=== PATIENT | male | born 1985 | race Caucasian/White ===

== ENCOUNTER 2021-05-25 13:17 | Inpatient (IN) | payer OTHER, SELFPAY ==
[2021-05-25] VITALS (7 sets, daily range): BP systolic 116–162; BP diastolic 61–110; PULSE 92–121; RESP 14–20; TEMP 36.7–37.2; O2SAT 96–100; BMI 25.6
--- NOTE | ~2021-05-25 | XR_ITS ---
EXAMINATION: XR humerus LT DATE: 05/25/2021 13:43 INDICATION: Left humerus injury. TECHNIQUE: A single view of left humerus was obtained. COMPARISON: Left elbow radiographs 05/25/2021 FINDINGS: There is a comminuted fracture of left humeral diaphysis. The main distal fracture fragment demonstrates 13 degrees medial angulation, 4 mm lateral displacement, and 8 mm anterior displacement . There is normal alignment at the shoulder and elbow. IMPRESSION: 1. Comminuted fracture of left humeral diaphysis. Reviewed, dictated and finalized at location A. EEPER
--- NOTE | ~2021-05-25 | XR_ITS ---
EXAMINATION: XR chest 1V portable INDICATION: Left humerus fracture TECHNIQUE: Portable AP chest at 1555 hours COMPARISON: None available FINDINGS: There are minimal opacities of the lungs, left greater than right. No pleural effusion or p neumothorax is identified. The cardiomediastinal silhouette is normal. IMPRESSION: 1. Minimal opacities of the lungs, likely atelectasis. Reviewed, dictated and finalized at location F. TING CRANE OPERATOR
--- NOTE | ~2021-05-25 | MR_ITS ---
EXAMINATION: MR humerus LT wo/w con DATE: 05/26/2021 17:15 INDICATION: Left humeral fracture. TECHNIQUE: Magnetic resonance imaging (MRI) of the left humerus was performed without and with 18 mL Multihance intravenous contrast. Sequences included axial, sagittal and coronal T1-weighted FSE and f luid sensitive FSE STIR, axial T1-weighted FS FSE and postcontrast axial and coronal T1-weighted FS F SE COMPARISON: Radiograph dated 05/25/2021 FINDINGS: Comminuted diaphyseal fracture of the left humerus with mild displacement and approximately 15 degree s posterior medial angulation at the oblique distal fracture plane and with nondisplaced more proxima l oblique fracture plane. Central marrow edema extending proximally and distally in the left humerus. No evident cortical erosion or loss of T1 fat signal to suggest underlying pathologic marrow replaci ng process. There is some additional soft tissue edema and mild non masslike enhancement in the surro unding musculature. Neurovascular structures are unremarkable and do not closely approaches the site of the fracture. No abnormally enhancing masses or bone lesions. The left shoulder and elbow joints a re unremarkable with no effusion or malalignment. IMPRESSION: 1. Left humeral diaphyseal fracture with no findings to suggest pathologic fracture. Reviewed, dictated and finalized at location A. TER TACKER IMPRESSION: 1. Left humeral diaphyseal fracture with no findings to suggest pathologic frac ture.
--- NOTE | ~2021-05-25 | XR_ITS ---
EXAMINATION: XR humerus LT DATE: 05/29/2021 16:57 INDICATION: Left humeral fracture with application of coaptation splint. TECHNIQUE: AP internally rotated view of the left humerus were obtained on 3 images. COMPARISON: Radiograph dated 05/25/2021 FINDINGS: Fiberglas splinting of a mildly comminuted diaphyseal fracture of the left humerus. There is increase d now 8 degrees anteromedial angulation. Left acromioclavicular and glenohumeral joints appear normal . Left elbow joint is poorly profiled. IMPRESSION: 1. 8 degree of residual anteromedial displacement of a mildly comminuted left humeral diaphyseal frac ture post reduction and splinting. Reviewed, dictated and finalized at location A. T [employer] IMPRESSION: 1. 8 degree of residual anteromedial displacement of a mildly comminuted left h umeral diaphyseal fracture post reduction and splinting.
--- NOTE | ~2021-05-25 | XR_ITS ---
EXAMINATION: XR elbow LT 2V DATE: 05/25/2021 13:43 INDICATION: Left elbow injury. TECHNIQUE: 2 views of left elbow were obtained. COMPARISON: None. FINDINGS: There is a comminuted fracture of left humeral diaphysis. There is normal bone alignment at the elbow. Joint spaces are normal. IMPRESSION: 1. Comminuted fracture of left humeral diaphysis. Reviewed, dictated and finalized at location A. 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
[2021-05-25] MEDS: KETOROLAC 30 MG/ML VIAL (*BKC) IV PUSH (13:34)
[2021-05-25] MEDS: LORazepam INJ (*CRX) 2 MG/ML VIAL 1 MG IV PUSH ×2 (13:40→22:35)
[2021-05-25] MEDS: HYDROmorphone HCL INJ (*CRX) 1 MG/ML SYR IV PUSH ×5 (13:59→23:38)
[2021-05-25] MEDS: diazePAM INJ (*CRX) 10 MG/2 ML SYRINGE 2.5 MG IV PUSH (14:00)
--- NOTE | 2021-05-25 15:07 | ED.UPPEXIN ---
HPI - Extremity Injury (Upper) General Chief Complaint: Extremity Injury, Upper Stated Complaint: arm injury Time Seen by Provider: 05/25/21 13:55 Source: patient Mode of arrival: ambulatory Limitations: no limitations History of Present Illness HPI narrative: Patient is a 35-year-old male complaining of left arm pain, the whole crowd at the baseball game heard it snap , 10 out of 10, dull, started prior to arrival after throwing a pitch, heard something snap and almost passed out due to the severity of the pain. Patient denies any other pain or injury. Related Data Home Medications Medication Instructions Recorded Confirmed bupropion HCl 150 mg PO DAILY 05/25/21 buspirone 15 mg PO TID PRN 05/25/21 naltrexone 50 mg PO BID 05/25/21 Allergies Allergy/AdvReac Type Severity Reaction Status Date / Time No Known Allergies Allergy Verified 05/25/21 13:24 Review of Systems Review of Systems: All systems reviewed & are unremarkable except as noted in HPI and below Constitutional: Constitutional: Denies body ache(s), Denies chills, Denies excessive sweating, Denies fatigue, Denies fever(s), Denies headache(s), Denies lethargy, Denies malaise, Denies weakness and Denies weight loss Eyes: Eyes: Denies blurry vision, Denies change in vision and Denies loss of vision ENT: Denies dizziness, Denies ear discharge, Denies headache(s), Denies lip swelling, Denies epistaxis, Denies nasal congestion, Denies neck pain, Denies throat swelling and Denies tongue swelling Cardiovascular: Cardiovascular: Denies chest pain, Denies chest pain at rest, Denies chest pain with activity, Denies diaphoresis, Denies rapid heart rate, Denies edema, Denies irregular heart rhythm, Denies lightheadedness, Denies palpitations, Denies dyspnea and Denies dyspnea on exertion Respiratory: Respiratory: Denies chest congestion, Denies cough, Denies hemoptysis, Denies dyspnea and Denies dyspnea on exertion Gastrointestinal: Gastrointestinal: Denies abdominal pain, Denies melena, Denies hematochezia, Denies diarrhea, Denies nausea, Denies vomiting and Denies hematemesis Musculoskeletal: Musculoskeletal: Denies abnormal gait, Denies neck pain and Denies numbness Neurologic: Denies Abnormal speech present, Denies abnormal gait, Denies confusion, Denies dizziness, Denies headache(s), Denies focal weakness, Denies loss of vision, Denies numbness, Denies Other visual disturbances, Denies Sensory deficit (Neuro) and Denies weakness Psychiatric: Psychiatric: Denies confusion, Denies depression, Denies auditory hallucinations, Denies homicidal ideation and Denies suicidal ideation Endocrine: Endocrine: Denies cold intolerance, Denies excessive sweating, Denies fatigue, Denies heat intolerance and Denies palpitations Hematologic/Lymphatic: Hematologic/Lymphatic: Denies easy bleeding and Denies easy bruising Allergic/Immunologic: Allergic/Immunologic: Denies lip swelling, Denies throat swelling and Denies tongue swelling PMFSH Comments Past medical history: None History: Unknown Social history: Non-smoker, no EtOH or drug use Exam Const: General: cooperative, healthy appearing, comfortable, no acute distress, well developed, alert and awake; No confusion Orientation/consciousness: oriented to person, oriented to place, oriented to time, patient oriented x3 and No confusion Limitations: no limitations HENMT: Head: normal to inspection, normocephalic and atraumatic Ears: hearing grossly normal bilaterally, TM normal on the right and TM normal on the left General nose exam: Normal external nose present, Normal nares present and No nasal discharge present Face and sinus: normal facial exam Mouth: Yes Normal oral and palatal mucosa present, Yes lip normal, Yes tongue normal and Yes oropharynx normal Throat: posterior oropharynx normal, tonsils normal and uvula midline Eyes: General: appearance normal, both eyes and all related structures Pupils: Equal, round and reacti
--- NOTE | 2021-05-25 15:47 | ECG_ITS ---
Measurements Intervals Drake Rate: 108 P: 50 VT: 172 QRS: 18 QRSD: 95 T: 30 QT: 326 QTc: 438 Interpretive Statements SINUS TACHYCARDIA INCOMPLETE RIGHT BUNDLE BRANCH BLOCK CONSIDER INFERIOR INFARCT, AGE INDETERMINATE BORDERLINE T WAVE ABNORMALITY- ANTERIOR LEADS ABNORMAL ECG Electronically Signed On 05-25-2021 20:27:44 HELP DESK SUPPORT by Prem Saleh D.O.
[2021-05-25] MEDS: LACTATED RINGERS 1,000 ML 125 ML IV CONT ×2 (15:55→22:35)
[2021-05-25 16:06] LABS: Basophils Absolute Auto 0.1 K/mm3 (0.0-0.1); Basophils Percent Auto 0.5 % (0.2-1.2); Eosinophils Percent Auto 0.2 % (0-4.4); Hematocrit 35.8 % (42.0-52.0); Hemoglobin 12.3 g/dL (14.0-18.0); Immature Granulocyte Absolute 0.09 K/mm3 (0.00-0.031); Immature Granulocyte Percent A 0.7 % (0-0.5); Immature Platelet Fraction Pct 1.4 % (0.9-11.2); Lymphocytes Percent Auto 9.7 % (18.3-44.2); Mean Corpuscular HGB Conc 34.4 g/dl (32-36); Mean Corpuscular Hemoglobin 31.7 pg (26-34); Mean Corpuscular Volume 92.3 fl (80-100); Mean Platelet Volume 8.7 fl (7.4-10.4); Monocytes Absolute Auto 0.6 K/mm3 (0.1-0.6); Monocytes Percent Auto 4.5 % (2.6-8.5); Neutrophils Absolute Auto 10.5 K/mm3 (1.3-6.7); Neutrophils Percent Auto 84.4 % (45.5-73.1); Platelet Count Result 241 k/mm3 (150-375); Red Blood Count 3.88 M/mm3 (4.6-6.20); Red Cell Distribution Width 11.9 % (11.5-14.5); White Blood Count 12.4 K/mm3 (4.5-10.0)
[2021-05-25 16:18] LABS: Alanine Aminotransferase 32 U/L (4-50); Albumin Level 4.1 g/dL (3.5-5.1); Alkaline Phosphatase 55 U/L (38-126); Anion Gap 9 mmol/L (8-16); Aspartate Amino Transferase 34 U/L (17-59); Bilirubin,Total 0.2 mg/dL (0.2-1.3); Blood Urea Nitrogen 15 mg/dL (9-20); Calcium 8.6 mg/dL (8.4-10.2); Carbon Dioxide 24 mmol/L (22-30); Chloride 105 mmol/L (98-107); Estimated CRCL calculation 122 ml/min; Estimated Glomerular Filt Rate > 60; Glucose 125 mg/dL (65-110); Potassium 3.7 mmol/L (3.4-5.0); Sodium 138 mmol/L (137-145)
[2021-05-25 16:22] LABS: INR 1.1; Prothrombin Time 13.7 Seconds (11.1-14.7)
[2021-05-25 16:23] LABS: Partial Thromboplastin Time 22.6 SECONDS (22.3-36.8)
--- NOTE | 2021-05-25 16:38 | ADMGEN ---
This patient, Kuldip Paez, was admitted to 2 Medical Room 256-. Patient oriented to hospital policies and general routines including ID bracelet, bed and alarms, visiting hours, pain management, procedures, bathroom and other care routines, personal items, smoking policy, room service/diet, and visiting hours. Information on how to activate the Rapid Response Team has been discussed. Patient are encouraged to report perceived risks to care and to ask questions if they do not understand what they are told or what they should do.
[2021-05-25 16:41] LABS: Platelet Estimate Adequate (Adequate)
[2021-05-25] MEDS: LORazepam INJ (*CRX) 2 MG/ML VIAL 0.5 MG IV PUSH (18:32)
[2021-05-25] MEDS: KETOROLAC 15 MG/ML VIAL (*BKC) IV PUSH (20:16)
--- NOTE | 2021-05-25 22:04 | PM.IMHP ---
H&P: HPI History of Present Illness Date/Time: 05/25/21 1800 this is a 35-year-old male patient who stated that he typically does not play baseball but he was pitching just for fun. The patient stated that all of the people at the gym heard his arm pop. The patient was throwing with his left arm the patient stated that he fell down to his knees and grabbed his arm. He stated that his arm which is popping around. The patient stated that he almost passed out from the severity of the pain. His he wrist x-ray was read as comminuted fracture of the left humeral diaphysis. White count 12.4. H&H is 12.3 and 35.8. The patient was given Toradol, Ativan, and Dilaudid. The patient is in severe pain. The left arm was wrapped and elevated. Ortho had been notified. They accept consult. The patient was initially placed as inpatient and then changed to observation. Date of service is 05/25/2021. Chief Complaint: Left arm pain Review of Systems Review of Systems: All systems reviewed & are unremarkable except as noted in HPI and below Constitutional: Constitutional: Reports as per HPI and Reports no additional constitutional complaints Eyes: Eyes: Reports as per HPI and Reports no additional eye complaints ENT: Reports system reviewed and no additional complaints, except as documented and Reports Normal hearing present Cardiovascular: Cardiovascular: Reports no additional cardiovascular complaints Respiratory: Respiratory: Reports no additional respiratory complaints and Reports no additional respiratory complaints Gastrointestinal: Gastrointestinal: Reports as per HPI and Reports no additional gastrointestinal complaints Musculoskeletal: Musculoskeletal: Reports no additional musculoskeletal complaints Integumentary/Breasts: Skin/Breast: Reports system reviewed and no additional complaints, except as docu and Reports as per HPI Neurologic: Reports system reviewed and no additional complaints, except as documented, Reports as per HPI and Reports Normal hearing present Psychiatric: Psychiatric: Reports no additional psychiatric complaints and Reports as per HPI Endocrine: Endocrine: Reports no additional endocrine complaints Hematologic/Lymphatic: Hematologic/Lymphatic: Reports no additional hematologic/lymphatic complaints Allergic/Immunologic: Allergic/Immunologic: Reports no additional allergic/immunologic complaints [facility] Past Medical History Medical History Anxiety Recovering alcoholic Surgical History Surgical History (Updated 05/25/21 @ 22:09 by Arlene Bull NP) History of tonsillectomy Family History Family History Mother Congestive heart failure Diabetes mellitus Father Congestive heart failure Father Hypertension Mother Hypertension Social History Social History (Updated 05/25/21 @ 22:11 by Arlene Bull NP) Social History: The patient lives with his and has 1 son. The patient works at [employer]. The patient stated that he is a recovering alcoholic. The patient stated that he occasionally smokes a pipe. He has not had any alcohol in at least 6 months. No marijuana or illicit drugs. 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 Code status full code Smoking status: Current every day smoker Alcohol intake: former Drinks per week: 20 Substance use: never Last use: 8 months ago Spiritual care concerns: No Meds Home Medications and Allergies Home Medications Medication Instructions Recorded Confirmed Type bupropion HCl 150 mg PO DAILY 05/25/21 05/25/21 History buspirone 15 mg PO TID PRN 05/25/21 05/25/21 History naltrexone 100 mg PO DAILY 05/25/21 05/25/21 History Allergies Allergy/AdvReac Type Severity Reaction Status Date / Time No Known Allergies Allergy Verified 05/25/21 13:24 Vital Signs Vital Signs - 24 hr 05/25/21 13:20 05/25/21 13:43 05/25/21 13:46 Tem
[2021-05-26] MEDS: NICOTINE (*PBKC) 2 MG GUM PO (00:23)
[2021-05-26] MEDS: KETOROLAC 15 MG/ML VIAL (*BKC) IV PUSH (01:23)
[2021-05-26] MEDS: HYDROmorphone HCL INJ (*CRX) 1 MG/ML SYR IV PUSH ×5 (04:13→17:44)
[2021-05-26] MEDS: LORazepam INJ (*CRX) 2 MG/ML VIAL 1 MG IV PUSH ×2 (04:57→16:02)
[2021-05-26 05:07] VITALS: BP 127/80; PULSE 83; RESP 16; TEMP 36.4; O2SAT 97
[2021-05-26 05:54] LABS: Basophils Absolute Auto 0.1 K/mm3 (0.0-0.1); Basophils Percent Auto 0.7 % (0.2-1.2); Eosinophils Absolute Auto 0.2 K/mm3 (0-0.3); Eosinophils Percent Auto 2.6 % (0-4.4); Hematocrit 32.7 % (42.0-52.0); Hemoglobin 11.4 g/dL (14.0-18.0); Immature Granulocyte Absolute 0.03 K/mm3 (0.00-0.031); Immature Granulocyte Percent A 0.4 % (0-0.5); Lymphocytes Absolute Auto 2.35 K/mm3 (0.9-3.2); Lymphocytes Percent Auto 29.3 % (18.3-44.2); Mean Corpuscular HGB Conc 34.9 g/dl (32-36); Mean Corpuscular Hemoglobin 31.8 pg (26-34); Mean Corpuscular Volume 91.1 fl (80-100); Mean Platelet Volume 8.8 fl (7.4-10.4); Monocytes Absolute Auto 0.8 K/mm3 (0.1-0.6); Monocytes Percent Auto 10.5 % (2.6-8.5); Neutrophils Absolute Auto 4.5 K/mm3 (1.3-6.7); Neutrophils Percent Auto 56.5 % (45.5-73.1); Platelet Count Result 248 k/mm3 (150-375); Red Blood Count 3.59 M/mm3 (4.6-6.20); Red Cell Distribution Width 11.9 % (11.5-14.5)
[2021-05-26 06:03] LABS: Lactic Acid Reflex 0.7 mmol/L (0.7-2.1)
[2021-05-26 06:10] LABS: Alanine Aminotransferase 28 U/L (4-50); Albumin Level 3.7 g/dL (3.5-5.1); Alkaline Phosphatase 48 U/L (38-126); Anion Gap 9 mmol/L (8-16); Aspartate Amino Transferase 30 U/L (17-59); Bilirubin,Total 0.6 mg/dL (0.2-1.3); Blood Urea Nitrogen 11 mg/dL (9-20); Calcium 8.8 mg/dL (8.4-10.2); Carbon Dioxide 25 mmol/L (22-30); Chloride 102 mmol/L (98-107); Estimated CRCL calculation 137 ml/min; Estimated Glomerular Filt Rate > 60; Glucose 103 mg/dL (65-110); Lactate Dehydrogenase 363 U/L (313-618); Magnesium 1.7 mg/dL (1.6-2.3); Sodium 136 mmol/L (137-145)
[2021-05-26] MEDS: LACTATED RINGERS 1,000 ML 125 ML IV CONT (06:29)
[2021-05-26 08:00] VITALS: PULSE 76; RESP 16; O2SAT 98
[2021-05-26] MEDS: busPIRone HCL 5 MG TABLET 15 MG PO ×3 (08:03→17:44)
[2021-05-26] MEDS: buPROPion HCL XL (24 HR) 150 MG TABCR PO (08:03)
--- NOTE | 2021-05-26 11:40 | PM.IMPN ---
Progress Note: A&P Assessment and Plan (1) Closed fracture of humerus, shaft: Qualifiers: Encounter type: initial encounter Fracture alignment: displaced Fracture morphology: comminuted Laterality: left Qualified Code(s): S42.352A - Displaced comminuted fracture of shaft of humerus, left arm, initial encounter for closed fracture Code(s): S42.309A - Unspecified fracture of shaft of humerus, unspecified arm, initial encounter for closed fracture Status: Acute Assessment and Plan: Patient was pitching a baseball when he heard a pop in his left arm. Humerus x-ray shows comminuted fracture of the left humeral diaphysis MRI of the left humerus pending (MRI is down for maintenance thus has been delayed) Appreciate orthopedic surgery consultation NPO at this time while awaiting ortho evaluation Supportive care. Elevate extremity Analgesics available as needed He will need PT/OT evals but will await surgical evaluation first (2) Anxiety: Code(s): F41.9 - Anxiety disorder, unspecified Status: Chronic Assessment and Plan: No issues at this time Continue bupropion and buspirone (3) Recovering alcoholic: Code(s): F10.21 - Alcohol dependence, in remission Status: Chronic Assessment and Plan: No alcohol in >6 months Continue naltrexone if brought from home Subjective Date/time seen: 05/26/21 11:40 Interval history: Date of service: 05/26/2021 Kuldip Paez is a left-hand dominant 35-year-old male with a history of anxiety and alcoholism now in recovery for 6 months who is seen in follow-up for left humerus fracture which occurred after pitching a baseball. He felt a ?pop? and had immediate pain. When his arm is resting down, he rates his pain as 7/10. Any movement, even minor, causes him to have 10/10 pain. He also endorses tingling in his left fingers. He wants to have surgery as soon as possible and has many questions for his orthopedic surgeon. He has no other concerns aside from his left arm. Denies shortness breath, cough, chest pain, nausea, vomiting, dizziness, lightheadedness, urinary symptoms. Review of Systems Review of Systems: All systems reviewed & are unremarkable except as noted in HPI and below Exam Narrative: General: Well-nourished, well-appearing 35 year-old male, lying supine in bed with left arm elevated, comfortable, NARD Neuro: awake, alert and oriented x4, speech clear, no focal neuro deficits noted HEENMT: normocephalic, atraumatic, EOMI, sclerae anicteric Respiratory: clear to auscultation bilaterally, nonlabored breathing Cardio: regular rate, regular rhythm with S1-S2 Abdomen: nondistended, normoactive bowel sounds, soft, nontender to palpation Extremities: Left arm splinted and elevated on pillows, able to wiggle fingers bilaterally, brisk capillary refill of left upper extremity fingers, sensation intact. Bilateral lower extremities without edema, erythema, or tenderness to palpation, DP pulses 2+ bilaterally Skin: no rashes or lesions, warm and dry Psych: appropriate mood and affect, judgment and insight intact Objective Data Vital Signs Vital Signs: Vital Signs - 24 hr 05/25/21 13:20 05/25/21 13:43 05/25/21 13:46 Temperature 98.1 F Pulse Rate 121 H 109 H 115 H Respiratory Rate 18 20 20 Blood Pressure 149/98 H 162/84 H 153/110 H Pulse Oximetry 100 100 100 05/25/21 16:27 05/25/21 16:48 05/25/21 20:48 Temperature 98.9 F Pulse Rate 92 106 H Respiratory Rate 14 15 Blood Pressure 126/82 137/85 Pulse Oximetry 97 100 96 05/25/21 22:00 05/26/21 05:07 05/26/21 08:00 Temperature 98.3 F 97.6 F Pulse Rate 96 83 76 Respiratory Rate 20 16 16 Blood Pressure 116/61 127/80 Pulse Oximetry 97 97 98 Intake/Output Intake/Output: Intake & Output 05/23/21 05/24/21 05/25/21 05/26/21 23:59 23:59 23:59 23:59 Intake Total 1200 1350 Output Total 800 800 Balance 400 550
[2021-05-26 14:00] VITALS: BP 144/85; PULSE 85; RESP 16; TEMP 36.9; O2SAT 97
[2021-05-26 16:46] LABS: Vitamin D 25 Hydroxy 18.3 ng/mL
--- NOTE | 2021-05-26 17:36 | PM.CNOR ---
Assessment and Plan Additional Plan Right mid shaft spiral oblique humeral fx can likely be rxed closed some radial n involvement but grossly intact keep bed elevated to help with dependency sling ordered for comfort will likely convert to Salazar brace for closed rx. medicine to manage pain. History of Present Illness HPI Consult date: 05/26/21 Chief complaint: Left Humerus Fracture Narrative: 35 yo was baseball pitching and sustained a mid shat humeral fx spiral with a large butterfly fragment. C/O pain as his limiting issue. Just returned from MRI scanner. [facility] Past Medical History Medical History Anxiety Recovering alcoholic Surgical History Surgical History (Updated 05/25/21 @ 22:09 by Arlene Bull NP) History of tonsillectomy Family History Family History Mother Congestive heart failure Diabetes mellitus Father Congestive heart failure Father Hypertension Mother Hypertension Social History Social History (Updated 05/25/21 @ 22:11 by Arlene Bull NP) Social History: The patient lives with his and has 1 son. The patient works at [employer]. The patient stated that he is a recovering alcoholic. The patient stated that he occasionally smokes a pipe. He has not had any alcohol in at least 6 months. No marijuana or illicit drugs. 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 Code status full code Smoking status: Current every day smoker Alcohol intake: former Drinks per week: 20 Substance use: never Last use: 8 months ago Spiritual care concerns: No Meds Home Medications and Allergies Home Medications Medication Instructions Recorded Confirmed Type bupropion HCl 150 mg PO DAILY 05/25/21 05/25/21 History buspirone 15 mg PO TID PRN 05/25/21 05/25/21 History naltrexone 100 mg PO DAILY 05/25/21 05/25/21 History Allergies Allergy/AdvReac Type Severity Reaction Status Date / Time No Known Allergies Allergy Verified 05/25/21 13:24 Vital Signs Vital Signs - 24 hr 05/25/21 20:48 05/25/21 22:00 05/26/21 05:07 Temperature 36.8 C 36.4 C Pulse Rate 96 83 Respiratory Rate 20 16 Blood Pressure 116/61 127/80 Pulse Oximetry 96 97 97 05/26/21 08:00 05/26/21 14:00 Temperature 36.9 C Pulse Rate 76 85 Respiratory Rate 16 16 Blood Pressure 144/85 H Pulse Oximetry 98 97 Exam Extrem: Other: Right arm Post U splint intact arm is swollen as expected but all compartments supple at rest his pain is managable Able to extend fingers actively but with some weakness. Thumb extension is similar. has feeling in Radial n distribution but with hypoesthesias. xray shows mid shaft spiral fx with large butterfly frag. some angular displacement at distal fx but acceptable position MRI done but pending report to R/O pathologic lesion which is unlikely given xray appearance. Results Labs Result Diagrams: 05/26/21 05:41 05/26/21 05:41 Labs: Abnormal lab results 05/26/21 05/26/21 Range/Units 05:41 05:41 RBC 3.59 L (4.6-6.20) M/mm3 Hgb 11.4 L (14.0-18.0) g/dL Hct 32.7 L (42.0-52.0) % [place] % (Auto) 10.5 H (2.6-8.5) % [place] # (Auto) 0.8 H (0.1-0.6) K/mm3 Sodium 136 L (137-145) mmol/L Total Protein 6.0 L (6.3-8.2) g/dL H & H 05/25/21 05/26/21 Range/Units 15:58 05:41 Hgb 12.3 L 11.4 L (14.0-18.0) g/dL Hct 35.8 L 32.7 L (42.0-52.0) % Coagulation 05/25/21 Range/Units 15:58 INR 1.1 All other labs normal. Quality VTE Prophylaxis VTE prophylaxis: mechanical ordered
[2021-05-26] MEDS: ACETAMINOPHEN 325 MG TABLET 650 MG PO (17:44)
--- NOTE | 2021-05-26 17:45 | P.CONOP_ITS ---
Assessment and Plan Additional Plan My consult note just dictated erroneously said right humeral fx. His left UE is the correct side. History of Present Illness HPI Consult date: 05/26/21 Chief complaint: Left Humerus Fracture PMFSH Past Medical History Medical History Anxiety Recovering alcoholic Surgical History Surgical History (Updated 05/25/21 @ 22:09 by Arlene Bull NP) History of tonsillectomy Family History Family History Mother Congestive heart failure Diabetes mellitus Father Congestive heart failure Father Hypertension Mother Hypertension Social History Social History (Updated 05/25/21 @ 22:11 by Arlene Bull NP) Social History: The patient lives with his and has 1 son. The patient works at [employer]. The patient stated that he is a recovering alco holic. The patient stated that he occasionally smokes a pipe. He has not had any alcohol in at least 6 months. No marijuana or illicit drugs. 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 Code status full code Smoking status: Current every day smoker Alcohol intake: former Drinks per week: 20 Substance use: never Last use: 8 months ago Spiritual care concerns: No Meds Home Medications and Allergies Home Medications Medication Instructions Recorded Confirmed Type bupropion HCl 150 mg PO DAILY 05/25/21 05/25/21 History buspirone 15 mg PO TID PRN 05/25/21 05/25/21 History naltrexone 100 mg PO DAILY 05/25/21 05/25/21 History Allergies Allergy/AdvReac Type Severity Reaction Status Date / Time No Known Allergies Allergy Verified 05/25/21 13:24 Vital Signs Vital Signs - 24 hr 05/25/21 20:48 05/25/21 22:00 05/26/21 05:07 Temperature 36.8 C 36.4 C Pulse Rate 96 83 Respiratory Rate 20 16 Blood Pressure 116/61 127/80 Pulse Oximetry 96 97 97 05/26/21 08:00 05/26/21 14:00 Temperature 36.9 C Pulse Rate 76 85 Respiratory Rate 16 16 Blood Pressure 144/85 H Pulse Oximetry 98 97 Results Labs Result Diagrams: 05/26/21 05:41 05/26/21 05:41 Labs: Abnormal lab results 05/26/21 05/26/21 Range/Units 05:41 05:41 RBC 3.59 L (4.6-6.20) M/mm3 Hgb 11.4 L (14.0-18.0) g/dL Hct 32.7 L (42.0-52.0) % [place] % (Auto) 10.5 H (2.6-8.5) % [place] # (Auto) 0.8 H (0.1-0.6) K/mm3 Sodium 136 L (137-145) mmol/L Total Protein 6.0 L (6.3-8.2) g/dL H & H 05/25/21 05/26/21 Range/Units 15:58 05:41 Hgb 12.3 L 11.4 L (14.0-18.0) g/dL Hct 35.8 L 32.7 L (42.0-52.0) % Coagulation 05/25/21 Range/Units 15:58 INR 1.1 All other labs normal. Quality VTE Prophylaxis VTE prophylaxis: mechanical ordered
[2021-05-26 19:43] VITALS: PULSE 85; RESP 16; O2SAT 97
[2021-05-26] MEDS: HYDROcodone/acetaminophen (*CRX) 5-325 MG TABLET 1 TAB PO (20:16)
[2021-05-26] MEDS: CYCLOBENZAPRINE HCL 5 MG TABLET PO (20:57)
[2021-05-26 22:00] VITALS: BP 135/91; PULSE 84; RESP 18; TEMP 36.4; O2SAT 97
[2021-05-27 01:28] VITALS: O2SAT 96
[2021-05-27] MEDS: ACETAMINOPHEN 325 MG TABLET 650 MG PO ×2 (01:31→04:59)
[2021-05-27] MEDS: HYDROmorphone HCL INJ (*CRX) 1 MG/ML SYR IV PUSH ×3 (01:34→08:30)
[2021-05-27] MEDS: CYCLOBENZAPRINE HCL 5 MG TABLET PO ×3 (05:02→20:33)
[2021-05-27 05:07] VITALS: BP 124/68; PULSE 82; RESP 14; TEMP 36.4; O2SAT 96
[2021-05-27 05:54] LABS: Hemoglobin 11.2 g/dL (14.0-18.0)
[2021-05-27] MEDS: busPIRone HCL 5 MG TABLET 15 MG PO ×3 (08:24→16:33)
[2021-05-27] MEDS: buPROPion HCL XL (24 HR) 150 MG TABCR PO (08:25)
[2021-05-27] MEDS: CHOLECALCIFEROL 1,000 UNITS TABLET 1000 UNITS PO (08:29)
--- NOTE | 2021-05-27 08:59 | PM.PNORT ---
Progress Note: A&P Additional Plan Cont to mobilize sling for comfort D/C planning Subjective Subjective Date/Time Seen: 05/27/21 08:59 Interval history: LEft arm less pain this am Exam Extrem: Other: Left Arm NV improved with more robust active extension of fingers and thumb Still with some subjective weakness Arm is swollen and tender to palp sling at bedside will try to mobilize this am Objective Data Vital Signs Vital Signs: Vital Signs - 24 hr 05/26/21 14:00 05/26/21 19:43 05/26/21 22:00 Temperature 36.9 C 36.4 C L Pulse Rate 85 85 84 Respiratory Rate 16 16 18 Blood Pressure 144/85 H 135/91 H Pulse Oximetry 97 97 97 05/27/21 01:28 05/27/21 05:07 Temperature 36.4 C Pulse Rate 82 Respiratory Rate 14 Blood Pressure 124/68 Pulse Oximetry 96 96 Intake/Output Intake/Output: Intake & Output 05/24/21 05/25/21 05/26/21 05/27/21 23:59 23:59 23:59 23:59 Intake Total 1200 2440 500 Output Total 800 3600 1950 Balance 400 -1160 -1450 Meds/Results Medications: Active Medications Generic Name Dose Route Start Last Admin Trade Name Freq PRN Reason Stop Dose Admin Acetaminophen 650 mg 05/26/21 18:00 05/27/21 04:59 Acetaminophen 325 Mg Tablet PO 325 mg Q6H MIRANDA Administration Hydrocodone Bitart/Acetaminophen 1 tab 05/26/21 14:48 05/26/21 20:16 Hydrocodone/Acetaminophen (*Crx) 5-325 Mg Tablet PO 1 tab Q6H PRN Administration Pain Rated 4-6 Bupropion HCl 150 mg 05/26/21 09:00 05/27/21 08:25 Bupropion Hcl Xl (24 Hr) 150 Mg Tabcr PO 150 mg DAILY MIRANDA Administration Buspirone HCl 15 mg 05/26/21 09:00 05/27/21 08:24 Buspirone Hcl 5 Mg Tablet PO 15 mg TID MIRANDA Administration Cyclobenzaprine HCl 5 mg 05/26/21 18:45 05/27/21 05:02 Cyclobenzaprine Hcl 5 Mg Tablet PO 5 mg Q8H PRN Administration Muscle Spasm Hydromorphone HCl 1 mg 05/25/21 16:53 05/27/21 08:30 Hydromorphone Hcl Inj (*Crx) 1 Mg/Ml Syr IV PUSH 1 mg Q3H PRN Administration Pain Rated 7-10 Lorazepam 1 mg 05/25/21 20:46 05/26/21 16:02 Lorazepam Inj (*Crx) 2 Mg/Ml Vial IV PUSH 1 mg Q4H PRN Administration Anxiety Miscellaneous Information 0 each 05/26/21 04:20 Naltrexone 50 Mg- Nonformulary. Please Obtain A Home Supply If Possible. XX 06/25/21 04:19 [facility] Nicotine Polacrilex 2 mg 05/25/21 22:40 05/26/21 00:23 Nicotine (*Pbkc) 2 Mg Gum PO 2 mg PRN PRN Administration Nicotine Cravings Non-Formulary Medication 100 mg 05/26/21 09:00 Naltrexone PO 06/25/21 08:59 DAILY [facility] Ondansetron HCl 4 mg 05/25/21 15:05 Ondansetron Inj 4 Mg/2 Ml Vial IV PUSH Q4H PRN Nausea Promethazine HCl 12.5 mg 05/25/21 15:05 Promethazine Hcl 25 Mg/Ml Ampul IV PUSH Q6H PRN Nausea Vitamin D 1,000 units 05/27/21 09:00 05/27/21 08:29 Cholecalciferol 1,000 Units Tablet PO 1,000 units DAILY [facility] Administration Radiology Results: ITS Impressions Elbow X-Ray 05/25/21 14:02 IMPRESSION: 1. Comminuted fracture of left humeral diaphysis. Humerus X-Ray 05/25/21 14:02 IMPRESSION: 1. Comminuted fracture of left humeral diaphysis. Chest X-Ray 05/25/21 16:08 IMPRESSION: 1. Minimal opacities of the lungs, likely atelectasis. Humerus MRI 05/26/21 19:21 IMPRESSION: 1. Left humeral diaphyseal fracture with no findings to suggest pathologic fracture. Labs Labs: Laboratory Results - last 24 hr 05/26/21 05/27/21 14:54 05:34 Hgb 11.2 L Hct 33.0 L Vitamin D 25-Hydroxy 18.3 Quality VTE Prophylaxis VTE prophylaxis: mechanical ordered
[2021-05-27] MEDS: HYDROcodone/acetaminophen (*CRX) 5-325 MG TABLET 1 TAB PO ×3 (11:46→20:33)
[2021-05-27 14:00] VITALS: BP 140/90; PULSE 108; RESP 20; TEMP 36.8; O2SAT 99
--- NOTE | 2021-05-27 15:55 | PM.IMPN ---
Progress Note: A&P Assessment and Plan (1) Closed fracture of humerus, shaft: Qualifiers: Encounter type: initial encounter Fracture alignment: displaced Fracture morphology: comminuted Laterality: left Qualified Code(s): S42.352A - Displaced comminuted fracture of shaft of humerus, left arm, initial encounter for closed fracture Code(s): S42.309A - Unspecified fracture of shaft of humerus, unspecified arm, initial encounter for closed fracture Status: Acute Assessment and Plan: Patient was pitching a baseball when he heard a pop in his left arm. Humerus x-ray shows comminuted fracture of the left humeral diaphysis MRI of the left humerus showed diaphyseal fracture with no findings to suggest pathologic fracture He has been seen in consultation by Orthopedic surgery Discussed case with orthopedic surgeon (Dr. Shetty) at [facility], recommendations for non operative management at this time Continue sling for comfort Awaiting brace from [facility] Appreciate PT/OT evaluation Supportive care. Elevate extremity Analgesics available as needed Patient would like to follow-up with orthopedic surgeon at [facility], closer to his home. His sister has been in contact with this surgeon and is in the process of obtaining a disc with the patient's imaging for evaluation by the surgeon Hopeful discharge tomorrow following application of brace and additional PT session (2) Anxiety: Code(s): F41.9 - Anxiety disorder, unspecified Status: Chronic Assessment and Plan: No issues at this time Continue bupropion and buspirone (3) Recovering alcoholic: Code(s): F10.21 - Alcohol dependence, in remission Status: Chronic Assessment and Plan: No alcohol in >6 months Continue naltrexone if brought from home Subjective Date/time seen: 05/27/21 15:55 Interval history: Date of service: 05/27/2021 Kuldip Paez is a left-hand dominant 35-year-old male with a history of anxiety and alcoholism now in recovery for 6 months who is seen in follow-up for left humerus fracture which occurred after pitching a baseball. He is doing a little bit better today. On my evaluation, he had not been up out of bed get. He states any minor movements cause him significant pain up to 10/10. If he keeps arm still has pain is better controlled. He is able to wiggle his fingers, though this does cause him some discomfort. Denies numbness or tingling in the fingers. Denies swelling in the hand or the arm. On my evaluation, he rated his arm pain is 9/10. He also had a mild headache. He is tolerating his diet. Denies nausea, vomiting, fever, chills, dizziness, lightheadedness, shortness breath, cough, chest pain. Review of Systems Review of Systems: All systems reviewed & are unremarkable except as noted in HPI and below Exam Narrative: General: Well-nourished, well-appearing 35 year-old male, lying supine in bed with left arm elevated, comfortable, NARD Neuro: awake, alert and oriented x4, speech clear, no focal neuro deficits noted HEENMT: normocephalic, atraumatic, EOMI, sclerae anicteric Respiratory: clear to auscultation bilaterally, nonlabored breathing Cardio: regular rate, regular rhythm with S1-S2 Abdomen: nondistended, normoactive bowel sounds, soft, nontender to palpation Extremities: Left arm splinted and elevated on pillows, able to wiggle fingers bilaterally, brisk capillary refill of left upper extremity fingers, sensation intact. Bilateral lower extremities without edema, erythema, or tenderness to palpation, DP pulses 2+ bilaterally Skin: no rashes or lesions, warm and dry Psych: appropriate mood and affect, judgment and insight intact Objective Data Vital Signs Vital Signs: Vital Signs - 24 hr 05/26/21 19:43 05/26/21 22:00 05/27/21 01:28 Temperature 97.5 F L Pulse Rate 85 84 Respiratory Rate 16 18 Blood Pressure 135/91 H Pulse Ox
[2021-05-27 19:49] VITALS: BP 127/66; PULSE 90; RESP 16; TEMP 36.4; O2SAT 99
[2021-05-27] MEDS: DOCUSATE SODIUM 100 MG CAPSULE PO (19:59)
[2021-05-27 21:26] VITALS: O2SAT 99
[2021-05-28] MEDS: HYDROcodone/acetaminophen (*CRX) 5-325 MG TABLET 1 TAB PO ×6 (00:54→23:02)
[2021-05-28] MEDS: MELATONIN 5 MG TABLET PO ×2 (00:56→20:41)
[2021-05-28 05:35] VITALS: BP 130/67; PULSE 89; RESP 17; TEMP 36.6; O2SAT 98
[2021-05-28 05:51] LABS: Hematocrit 33.1 % (42.0-52.0); Hemoglobin 11.2 g/dL (14.0-18.0)
[2021-05-28] MEDS: busPIRone HCL 5 MG TABLET 15 MG PO ×3 (08:02→16:12)
[2021-05-28] MEDS: DOCUSATE SODIUM 100 MG CAPSULE PO ×2 (08:02→20:40)
[2021-05-28] MEDS: CHOLECALCIFEROL 1,000 UNITS TABLET 1000 UNITS PO (08:02)
[2021-05-28] MEDS: CYCLOBENZAPRINE HCL 5 MG TABLET PO ×2 (08:02→16:12)
[2021-05-28] MEDS: buPROPion HCL XL (24 HR) 150 MG TABCR PO (08:02)
--- NOTE | 2021-05-28 13:07 | PCOTNOTE ---
Attempted to see patient this date at 13:05pm, patient currently eating lunch.
[2021-05-28 14:00] VITALS: BP 140/77; PULSE 98; RESP 16; TEMP 36.1; O2SAT 98
--- NOTE | 2021-05-28 16:13 | PM.IMPN ---
Progress Note: A&P Assessment and Plan (1) Closed fracture of humerus, shaft: Qualifiers: Encounter type: initial encounter Fracture alignment: displaced Fracture morphology: comminuted Laterality: left Qualified Code(s): S42.352A - Displaced comminuted fracture of shaft of humerus, left arm, initial encounter for closed fracture Code(s): S42.309A - Unspecified fracture of shaft of humerus, unspecified arm, initial encounter for closed fracture Status: Acute Assessment and Plan: Patient was pitching a baseball when he heard a pop in his left arm. Humerus x-ray showed comminuted fracture of the left humeral diaphysis MRI of the left humerus showed diaphyseal fracture with no findings to suggest pathologic fracture He has been seen in consultation by Orthopedic surgery Discussed case with orthopedic surgeon (Dr. Shetty) at [facility], recommendations for non operative management at this time Continue sling for comfort Awaiting brace from [facility] He has arranged follow-up with orthopedic surgeon at [facility], Dr. Dong Moura. He had an appointment for 05/29/2021 at 7:45 a.m., however this will be rescheduled as he is still awaiting his brace from [facility]. Supportive care. Elevate extremity Analgesics available as needed (2) Anxiety: Code(s): F41.9 - Anxiety disorder, unspecified Status: Chronic Assessment and Plan: No issues at this time Continue bupropion and buspirone (3) Recovering alcoholic: Code(s): F10.21 - Alcohol dependence, in remission Status: Chronic Assessment and Plan: No alcohol in >6 months Holding naltrexone while taking opioid analgesics Subjective Date/time seen: 05/28/21 16:13 Interval history: Date of service: 05/28/2021 Kuldip Paez is a left-hand dominant 35-year-old male with a history of anxiety and alcoholism now in recovery for 6 months who is seen in follow-up for left humerus fracture which occurred after pitching a baseball. Starting to feel better today. His pain is better controlled. Currently he rates the pain about a 5/10. He still is not able to move the arm. He does have some numbness in the middle of his fingers but he does report good sensation when he moves the fingers. He is still having difficulty with getting up due to pain and has not been out of bed today. He is awaiting his brace from [facility]. No nausea, vomiting, fever, chills, shortness breath, cough, chest pain. No urinary symptoms. He has not had a bowel movement since his admission. Review of Systems Review of Systems: All systems reviewed & are unremarkable except as noted in HPI and below Exam Narrative: General: Well-nourished, well-appearing 35 year-old male, lying supine in bed with left arm elevated, comfortable, NARD Neuro: awake, alert and oriented x4, speech clear, no focal neuro deficits noted HEENMT: normocephalic, atraumatic, EOMI, sclerae anicteric Respiratory: clear to auscultation bilaterally, nonlabored breathing Cardio: regular rate, regular rhythm with S1-S2 Abdomen: nondistended, normoactive bowel sounds, soft, nontender to palpation Extremities: Left arm splinted and elevated on pillows, able to wiggle fingers bilaterally, brisk capillary refill of left upper extremity fingers, sensation intact. Bilateral lower extremities without edema, erythema, or tenderness to palpation, DP pulses 2+ bilaterally Skin: no rashes or lesions, warm and dry Psych: appropriate mood and affect, judgment and insight intact Objective Data Vital Signs Vital Signs: Vital Signs - 24 hr 05/27/21 19:49 05/27/21 21:26 05/28/21 05:35 Temperature 97.6 F 97.8 F Pulse Rate 90 89 Respiratory Rate 16 17 Blood Pressure 127/66 130/67 Pulse Oximetry 99 99 98 05/28/21 14:00 Temperature 97.0 F L Pulse Rate 98 Respiratory Rate 16 Blood Pressure 140/77 Pulse Oximetry 98 Intake/Output Intake/Output: In
[2021-05-28 19:52] VITALS: BP 139/68; PULSE 105; RESP 16; TEMP 36.6; O2SAT 100
[2021-05-28] MEDS: ACETAMINOPHEN 325 MG TABLET 650 MG PO (20:41)
[2021-05-29] MEDS: CYCLOBENZAPRINE HCL 5 MG TABLET PO ×2 (01:47→19:59)
[2021-05-29 03:00] VITALS: BP 121/75; PULSE 86; RESP 16; TEMP 36.2; O2SAT 100
[2021-05-29 03:23] VITALS: O2SAT 98
[2021-05-29] MEDS: HYDROcodone/acetaminophen (*CRX) 5-325 MG TABLET 1 TAB PO ×5 (04:39→22:57)
[2021-05-29] MEDS: busPIRone HCL 5 MG TABLET 15 MG PO ×3 (08:00→17:01)
[2021-05-29] MEDS: buPROPion HCL XL (24 HR) 150 MG TABCR PO (08:01)
[2021-05-29] MEDS: DOCUSATE SODIUM 100 MG CAPSULE PO ×2 (08:01→19:59)
[2021-05-29] MEDS: CHOLECALCIFEROL 1,000 UNITS TABLET 1000 UNITS PO (08:01)
[2021-05-29] MEDS: polyethylene glycoL 3350 17 GM POWD.PACK PO (08:02)
[2021-05-29] MEDS: HYDROmorphone HCL INJ (*CRX) 1 MG/ML SYR 0.5 MG IV PUSH (08:08)
--- NOTE | 2021-05-29 10:22 | PCOTNOTE ---
Attempted to see patient this date, however patient declined at this time due to pain. Pt denied ADLs stating, No, I just have too much going on right now. I'm waiting to see about the plan since the brace didn't work out.
[2021-05-29 11:00] VITALS: BP 118/68; PULSE 88; RESP 16; TEMP 36.2; O2SAT 100
[2021-05-29] MEDS: LORazepam INJ (*CRX) 2 MG/ML VIAL 1 MG IV PUSH (11:33)
--- NOTE | 2021-05-29 11:41 | PC.NURSE ---
On 05/29/21, the student, [Donna Plaza], provided care and completed [facility] documentation on this patient. I have reviewed the student's documentation and agree with the findings.
--- NOTE | 2021-05-29 15:54 | PM.PNORT ---
Progress Note: A&P Additional Plan Humeral fx long spiral with a butterfly fragment that is min displaced. Hx of injury was highly suspicious for path fx but all indications are that this in NOT pathologic. Plain xray does not show any indication of abnl bone and MRI was neg for any indication of tumor. Plan: Coaptation splint Probable closed rx he has a shoulder surgeon who he has arranged to f/U with on Mon AM I would be happy to continue his care if he wishes however, surgery on the humerus is now beyond the scope of my practice and I would only continue his care if it remained non operative. Wrist cock up splint if he desires. Subjective Subjective Date/Time Seen: 05/29/21 15:54 Interval history: 35 yo with humeral fx still c/o pain in left arm. When he is at rest he seems to have little pain. When I entered the room he was reading and seemed comfortable. Motion or spasms set off his pain. He is now at a point where we should be able to change his splint to something more supportive and better in the short term. Exam Extrem: Other: Left humerus. still with some hypoesthesia in radial n distribution but definitely able to feel LT and pinch to the radial sens n area. Can extend his fingers and thumb although these are weak. Wrist extension from a flexed position but could not extend past neutral. This is very similar to my previous eval. with some gentle coaxing I removed the splint and replaced it with a well padded Coaptation splint. He tolerated this quite well. we were able to get his elbow flex from about 30 to 70 degrees. A sling was applied as a counter to the weight of the Coaptation. Radial n testing was equivalent after placing the splint. see above. Pt was able to then get out of bed and walk around the room. Objective Data Vital Signs Vital Signs: Vital Signs - 24 hr 05/28/21 19:52 05/29/21 03:00 05/29/21 03:23 Temperature 36.6 C 36.2 C L Pulse Rate 105 H 86 Respiratory Rate 16 16 Blood Pressure 139/68 121/75 Pulse Oximetry 100 100 98 05/29/21 11:00 Temperature 36.2 C L Pulse Rate 88 Respiratory Rate 16 Blood Pressure 118/68 Pulse Oximetry 100 Intake/Output Intake/Output: Intake & Output 0205/27/21 05/28/21 05/29/21 23:59 23:59 23:59 23:59 Intake Total 2440 2040 980 962 Output Total 3600 3050 1600 200 [facility] -[phone] Meds/Results Medications: Active Medications Generic Name Dose Route Start Last Admin Trade Name Freq PRN Reason Stop Dose Admin Acetaminophen 650 mg 05/27/21 10:07 05/28/21 20:41 Acetaminophen 325 Mg Tablet PO 650 mg Q6H PRN Administration Pain 1-5 Hydrocodone Bitart/Acetaminophen 1 tab 05/27/21 16:06 05/29/21 15:08 Hydrocodone/Acetaminophen (*Crx) 5-325 Mg Tablet PO 1 tab Q4H PRN Administration Pain Rated 6-10 Bupropion HCl 150 mg 05/26/21 09:00 05/29/21 08:01 Bupropion Hcl Xl (24 Hr) 150 Mg Tabcr PO 150 mg DAILY MIRANDA Administration Buspirone HCl 15 mg 05/26/21 09:00 05/29/21 13:41 Buspirone Hcl 5 Mg Tablet PO 15 mg TID MIRANDA Administration Cyclobenzaprine HCl 5 mg 05/26/21 18:45 05/29/21 01:47 Cyclobenzaprine Hcl 5 Mg Tablet PO 5 mg Q8H PRN Administration Muscle Spasm Docusate Sodium 100 mg 05/27/21 21:00 05/29/21 08:01 Docusate Sodium 100 Mg Capsule PO 100 mg Q12HR MIRANDA Administration Hydromorphone HCl 0.5 mg 05/27/21 10:07 05/29/21 08:08 Hydromorphone Hcl Inj (*Crx) 1 Mg/Ml Syr IV PUSH 0.5 mg Q3H PRN Administration Breakthrough Pain Lorazepam 1 mg 05/25/21 20:46 05/29/21 11:33 Lorazepam Inj (*Crx) 2 Mg/Ml Vial IV PUSH 1 mg Q4H PRN Administration Anxiety Melatonin 5 mg 05/27/21 18:35 05/28/21 20:41 Melatonin 5 Mg Tablet PO 5 mg HS PRN Administration Insomnia Nicotine Polacrilex 2 mg 05/25/21 22:40 05/26/21 00:23 Nicotine (*Pbkc) 2 Mg Gum PO 2 mg PRN PRN Administration Nicotine Cravings
--- NOTE | 2021-05-29 16:19 | PM.IMPN ---
Progress Note: A&P Assessment and Plan (1) Closed fracture of humerus, shaft: Qualifiers: Encounter type: initial encounter Fracture alignment: displaced Fracture morphology: comminuted Laterality: left Qualified Code(s): S42.352A - Displaced comminuted fracture of shaft of humerus, left arm, initial encounter for closed fracture Code(s): S42.309A - Unspecified fracture of shaft of humerus, unspecified arm, initial encounter for closed fracture Status: Acute Assessment and Plan: Patient was pitching a baseball when he heard a pop in his left arm. Humerus x-ray showed comminuted fracture of the left humeral diaphysis MRI of the left humerus showed diaphyseal fracture with no findings to suggest pathologic fracture Vitamin D levels deficient and have been supplemented He has been seen in consultation by Orthopedic surgery Could not tolerate Salazar brace Coaptation splint applied today Repeat x-ray He has arranged follow-up with orthopedic surgeon at [facility], Dr. Dong Moura on 06/02/2021 Supportive care. Elevate extremity Analgesics available as needed (2) Anxiety: Code(s): F41.9 - Anxiety disorder, unspecified Status: Chronic Assessment and Plan: No issues at this time Continue bupropion and buspirone (3) Recovering alcoholic: Code(s): F10.21 - Alcohol dependence, in remission Status: Chronic Assessment and Plan: No alcohol in >6 months Holding naltrexone while taking opioid analgesics Time Spent With Patient Time with patient: Greater than 35 minutes Subjective Date/time seen: 05/29/21 16:19 Interval history: Date of service: 05/29/2021 Kuldip Paez is a left-hand dominant 35-year-old male with a history of anxiety and alcoholism now in recovery for 6 months who is seen in follow-up for left humerus fracture which occurred after pitching a baseball. This morning he did not tolerate placement of the Salazar brace due to significant pain adduction trying to place the brace. I had a long discussion with both the patient and his about next steps. They requested I speak with the physician's office that they have been in contact with to establish follow-up, Dr. Dong Moura. I spoke with his director biomedical engineering, Marichuy and they stated that he can follow-up with their office on Wednesday. If he could not tolerate brace application and discharge home they suggested transfer to ortho Trauma Service. I then spoke with [facility] transfer line and was connected with Dr. Hernandez who reported that patient was not a candidate for inpatient transfer for emergent surgery and non operative management was the preferred approach. The patient's pain was not an indication for surgery. I then spoke with Dr. Banuelos who stated we could remove and replace the splint and see if his pain improves with that. I assisted Dr. Banuelos with fitting the patient in a coaptation splint. The patient was able to tolerate this and his pain was better controlled than it had been and his arm was more comfortable. Following splint application, he endorsed a dull ache in right wrist as well as a small amount of numbness and tingling in the right fingers. An x-ray will be repeated. He will plan for discharge home tomorrow morning. He will follow-up with Dr. Moura on Wednesday06/02/2021. I spent 1 hour in coordination of this patient's care. Review of Systems Review of Systems: All systems reviewed & are unremarkable except as noted in HPI and below Exam Narrative: General: Well-nourished, well-appearing 35 year-old male, lying supine in bed with left arm elevated, comfortable, NARD Neuro: awake, alert and oriented x4, speech clear, no focal neuro deficits noted HEENMT: normocephalic, atraumatic, EOMI, sclerae anicteric Respiratory: clear to auscultation bilaterally, nonlabored breathing Cardio: regular rate, regular rhythm with S1-S2 Abdomen: nondistended
[2021-05-29 19:00] VITALS: BP 122/62; PULSE 84; RESP 16; TEMP 36.4; O2SAT 100
[2021-05-29 19:59] VITALS: BP 132/82; PULSE 87; RESP 16; TEMP 36.6; O2SAT 98
[2021-05-29] MEDS: MELATONIN 5 MG TABLET PO (19:59)
[2021-05-30 03:00] VITALS: BP 110/70; PULSE 87; RESP 17; TEMP 36.3; O2SAT 99
[2021-05-30] MEDS: HYDROcodone/acetaminophen (*CRX) 5-325 MG TABLET 1 TAB PO ×2 (04:15→08:48)
[2021-05-30] MEDS: CYCLOBENZAPRINE HCL 5 MG TABLET PO (04:18)
[2021-05-30 04:48] VITALS: O2SAT 97
[2021-05-30] MEDS: busPIRone HCL 5 MG TABLET 15 MG PO (08:48)
[2021-05-30] MEDS: buPROPion HCL XL (24 HR) 150 MG TABCR PO (08:48)
[2021-05-30] MEDS: polyethylene glycoL 3350 17 GM POWD.PACK PO (08:49)
[2021-05-30] MEDS: DOCUSATE SODIUM 100 MG CAPSULE PO (08:49)
[2021-05-30] MEDS: CHOLECALCIFEROL 1,000 UNITS TABLET 1000 UNITS PO (08:49)
--- NOTE | 2021-05-30 09:39 | PM.DS ---
DS: Admitting Diagnosis Discharge Date 05/30/2021 Admitting Diagnosis Left humerus fracture DS: Discharge Diagnosis Discharge Diagnosis (1) Closed fracture of humerus, shaft: Qualifiers: Encounter type: initial encounter Fracture alignment: displaced Fracture morphology: comminuted Laterality: left Qualified Code(s): S42.352A - Displaced comminuted fracture of shaft of humerus, left arm, initial encounter for closed fracture Code(s): S42.309A - Unspecified fracture of shaft of humerus, unspecified arm, initial encounter for closed fracture Status: Acute Assessment and Plan: Patient was pitching a baseball when he heard a pop in his left arm. Humerus x-ray showed comminuted fracture of the left humeral diaphysis MRI of the left humerus showed diaphyseal fracture with no findings to suggest pathologic fracture Vitamin D levels deficient and have been supplemented He was seen in consultation by Orthopedic surgery Could not tolerate [facility] brace Coaptation splint applied 05/29/2021 Pain did improve and he felt comfortable with discharge home. He has arranged follow-up with orthopedic surgeon at [facility], Dr. Dong Moura on 06/02/2021 at 9:00 a.m. Supportive care provided. Elevate extremity. Analgesics provided as needed (2) Anxiety: Code(s): F41.9 - Anxiety disorder, unspecified Status: Chronic Assessment and Plan: No issues during hospitalization Continue bupropion and buspirone (3) Recovering alcoholic: Code(s): F10.21 - Alcohol dependence, in remission Status: Chronic Assessment and Plan: No alcohol in >6 months Maintained on naltrexone Naltrexone held while taking opioid analgesics. Follow-up with PCP to resume DS: Summary Hospital Course Hospital Course: Date of admission: 05/25/2021 Date of discharge: 05/30/2021 Kuldip Paez is a left-hand dominant 35-year-old male with a history of anxiety and alcoholism now in recovery for 6 months who presented to the emergency department on 05/25/2021 with complaints of left arm pain after pitching a baseball and heard a pop in his arm. He was found to have comminuted fracture of the left humeral diaphysis. He was admitted to the hospitalist service for further evaluation management and was seen in consultation by Orthopedic surgery. Please see above for further details. Coaptation splint was applied and patient had improvement in his pain. He will follow-up with Orthopedic surgery on Wednesday. He was feeling improved and requested discharge home. Discussed worrisome signs and symptoms for which to return. He was discharged in hemodynamically stable condition on 05/30/2021 Status at Discharge Functional status at discharge: independent ambulation Overall status at discharge: patient is progressing back to baseline Time Spent with Patient Time attestation: Total time spent providing and/or coordinating discharge services: 38 minutes Time spent: Greater than 30 minutes Exam Narrative: General: Well-nourished, well-appearing 35 year-old male, standing up walking around the room, comfortable, NARD Neuro: awake, alert and oriented x4, speech clear, no focal neuro deficits noted HEENMT: normocephalic, atraumatic, EOMI, sclerae anicteric Respiratory: clear to auscultation bilaterally, nonlabored breathing Cardio: regular rate, regular rhythm with S1-S2 Extremities: Left arm in coaptation splint, able to wiggle fingers bilaterally, brisk capillary refill of left upper extremity fingers, sensation intact Skin: no rashes or lesions, warm and dry Psych: appropriate mood and affect, judgment and insight intact DS: Data Imaging Radiologist's impression: ITS Impressions Elbow X-Ray 05/25/21 14:02 IMPRESSION: 1. Comminuted fracture of left humeral diaphysis. Humerus X-Ray 05/25/21 14:02 IMPRESSION: 1. Comminuted fracture of left humeral diaphysis. Chest
[2021-05-30] MEDS: ACETAMINOPHEN 325 MG TABLET 650 MG PO (10:49)
== END 2021-05-30 11:14 | disposition home or self-care (01) | DRG 563 ==
LOC: ANHED 15:14 → ANH2MED 15:56
PROVIDERS: Nurse Practitioner; Physician Assistant; Admitting Provider Internal Medicine; Emergency Provider Emergency Medicine; Visit Provider Family Medicine
DX: S42.352A Displaced comminuted fracture of shaft of humerus, left arm, initial encounter for closed fracture (principal); X50.0XXA Overexertion from strenuous movement or load, initial encounter; E55.9 Vitamin D deficiency, unspecified; F41.9 Anxiety disorder, unspecified; F10.21 Alcohol dependence, in remission; F17.210 Nicotine dependence, cigarettes, uncomplicated
CPT/HCPCS: 36415; 71045; 73060; 73070; 73220; 80053; 82306; 82728; 83605; 83615; 83735; 84443; 85014; 85018; 85025; 85055; 85610; 85730; 93005; 96361; 96365; 96374; 96375; 96376; 97161; 97165; 99285; A4565; A9270; A9577; G0378; J0131; J1170; J1885; J2060; J3360; J7120